=== PATIENT | male | born 2005 | race Caucasian/White ===

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

== ENCOUNTER 2025-02-08 13:25 | Emergency (ER) | payer SELFPAY ==
[2025-02-08 13:42] VITALS: BP 124/77; PULSE 102; RESP 16; TEMP 37.2; O2SAT 97
--- NOTE | 2025-02-09 08:10 | ED_ITS ---
HPI - URI/Sore Throat General Chief Complaint: Upper Respiratory Infection Stated Complaint: Sinus Infection Symptoms Time Seen by Provider: 02/08/25 14:10 Source: patient and RN notes reviewed Mode of arrival: ambulatory Limitations: no limitations History of Present Illness HPI Narrative: My 19-year-old male presents [facility] complaining of upper respiratory symptoms for last 5 days. Patient reports cough, congestion, runny nose. Patient thought his symptoms were getting better than today woke up with worsening symptoms worsening sinus pressure, mucopurulent nasal drainage, worsening cough. Patient denies any fevers body aches, chills, nausea, vomiting, diarrhea, chest pain, difficulty breathing, or any other symptoms. Patient has been taking [id number] antihistamines with some relief. Related Data Home Medications ?Medication ?Instructions ?Recorded ?Confirmed ?Last Taken ?Type acetaminophen 325 mg capsule 325 mg PO Q6H PRN 1 Unknown History (Tylenol) ibuprofen [Ibuprofen IB] PO 09/06/20 Unknown History Allergies Allergy/AdvReac Type Severity Reaction Status Date / Time No Known Allergies Allergy Verified 02/08/25 13:41 Review of Systems Review of Systems: CONSTITUTIONAL: Denies fever, chills, body aches, or sweats. EYES: Denies visual changes, redness, or discharge. ENT: Positive for rhinorrhea, congestion. Negative for sore throat, or otalgia. CARDIOVASCULAR: Denies chest pain, palpitations, or edema. RESPIRATORY: Positive for cough. Negative for dyspnea or wheezing. GASTROINTESTINAL: Denies abdominal pain, nausea, vomiting, or diarrhea. GENITOURINARY: Denies dysuria or hematuria. SKIN: Denies rash or itching. MUSCULOSKELETAL: Denies back pain, joint pain, or myalgia. NEUROLOGIC: Denies headache, numbness, or weakness. PSYCHIATRIC: Denies anxiety or depression. All other systems reviewed are negative, except as documented in HPI. [facility] Past Medical History Medical History Anxiety Depression Constipation Coughing Vision changes Chronic headaches Claustrophobia Healthy male adolescent Surgical History Surgical History No pertinent past surgical history Family History Family History Other Diabetes mellitus Hypertension Social History Social History Smoking status: Current some day smoker Tobacco type: e-cigarettes/vaping Substance use: never Substance use type: does not use Gender identity (if verbalized by the patient): Male Comments At the time of my signature, I reviewed and agree with the nursing past medical, surgical, social, and family history. There is no relevant family history pertinent to the patient complaint. Exam Narrative: GENERAL: This is a well-nourished, well-developed adult, in no apparent distress. They are non ill-appearing, nontoxic appearing. HEAD: normocephalic, atraumatic. EYES: Sclera clear/white. Vision is grossly intact. Conjunctiva normal bilaterally. Extraocular movements intact. EARS: External ears normal, auditory canals clear and without drainage, TMs without erythema or perforation. Hearing grossly intact. NOSE: External nose normal with no obvious nasal discharge, nasal turbinates erythematous with exudate present, no rhinorrhea. Maxillary sinus tenderness to palpation. THROAT: Mucous membranes moist, posterior pharynx erythematous without exudate. Uvula is midline. Postnasal drip present. NECK: Neck supple, non-tender without lymphadenopathy, masses or thyromegaly. CARDIOVASCULAR: Regular rate and rhythm without murmurs, gallops, or rubs. RESPIRATORY: Clear to auscultation. Breath sounds equal bilaterally. No wheezes, rales, or rhonchi. SKIN: warm, Dry, intact with no suspicious lesions or rash, good texture and turgor. NEURO: awake, alert, and oriented to person, place and time. There were no obvious focal neurologic abnormalities. EXTREMITIES: No joint tenderness, effusion, or edema noted. BACK: Nontender without deformity. Course Course Emergency Course: Portions of this record may have been created with voice recognition software Level of Care: Express Care Visit Vital Signs Vital signs: Vital Signs Temperature 99.0 F 02/08/25 13:42 Pulse Rate 102 H 02/08/25 13:42 Respiratory Rate 16 02/08/25 13:42 Blood Pressure 124/77 02/08/25 13:42 Pulse Oximetry 97 02/08/25 13:42 Oxygen Delivery Room Air 02/08/25 13:42 Temperature 99.0 F 02/08/25 13:42 Pulse Rate 102 H 02/08/25 13:42 Respiratory Rate 16 02/08/25 13:42 Blood Pressure 124/77 02/08/25 13:42 Pulse Oximetry 97 02/08/25 13:42 Oxygen Delivery Room Air 02/08/25 13:42 MDM - URI/Sore Throat MDM Narrative Medical decision making narrative: Given patient's worsening symptoms is likely developed a bacterial sinusitis. Will treat him with Augmentin. Also prescribe benzonatate tablets as needed for cough. Discussed physical exam findings. Advised supportive measures and signs/symptoms to go to the ER. Pt is appropriate for outpt treatment and f/u. Differential Diagnosis Differential diagnosis: Likely upper respiratory infection, sinusitis and viral infection Discharge Plan Discharge Clinical Impression: Sinusitis Patient Disposition: Home Condition: Stable Instructions: Sinusitis (ED) Additional Instructions: Take the antibiotics as directed and complete the course even if you start to feel better. Take benzonatate tablets as needed for cough. You may use a Neti pot saline rinse 3 times a day with lukewarm distilled water You may take ibuprofen 600 mg to 800 mg every 6-8 hours. Do not exceed more than 800 mg of ibuprofen per dose. Do not exceed more than 3200 mg ibuprofen in a day. You may take up to 1000 mg Tylenol every 6-8 hours. Do not exceed 1000 mg per dose, do exceed more than 4000 mg of Tylenol in a day. Use a humidifier or vaporizer at night. Drink plenty of water. 8-10 glasses per day. Use flonase 2 times per day for 5 days then as needed Take mucinex 2 times per day and be sure to take with 8oz of water. Follow up with Primary provider in 3-5 days Please go to the ER if he develops any difficulty breathing, worsening symptoms, or any other concerns Patient Language: Faroese Prescriptions: New amoxicillin-pot clavulanate 875-125 mg tablet 1 tablet PO Q12H 7 Days Qty: 14 0RF benzonatate 100 mg capsule 100 mg PO TID PRN (Reason: cough) Qty: 20 0RF No Action hydrocodone-acetaminophen 5-325 mg tablet 1 tablet PO Q6H PRN (Reason: pain) Qty: 10 0RF acetaminophen [Tylenol] 325 mg capsule 325 mg PO Q6H PRN Patient Comments: per patient home medication list 09/06/20 ibuprofen [Ibuprofen IB] PO Patient Comments: per patient home medication list 09/06/20 hydrocortisone [Preparation H Hydrocortisone] 1 % cream 1 applic topical TID PRN (Reason: hemorrhoids) Qty: 28.35 0RF Follow-up/Referrals: PHYSICIAN,COMMUNICATIONS SUPERVISOR [Primary Care Provider, Internal Medicine] Time of Disposition: 14:27
== END 2025-02-08 14:33 | disposition home or self-care (01) ==
DX: J32.9 Chronic sinusitis, unspecified (principal); F17.290 Nicotine dependence, other tobacco product, uncomplicated
CPT/HCPCS: 99213; G0463